=== PATIENT | female | born 1940 | race Caucasian/White ===

== ENCOUNTER → 2022-02-27 | Outpatient (CLI) | payer MEDICARE, BC ==
[~2022-02-27] MED LIST: ATIVAN1 MG PO; CLARITIN10 MG PO; COUMADIN5 MG PO; OMNICEF 300 MG300 MG PO; VENTOLIN HFA 66.7 GM INH
== END ==
LOC: HEART 5 11:37
DX: I48.91 Unspecified atrial fibrillation (principal); I48.92 Unspecified atrial flutter